=== PATIENT | male | born 1960 | race American Indian/Alaskan Native ===

== ENCOUNTER 2016-07-02 16:29 | Inpatient (IN) | payer MEDICARE ==
[2016-07-02] MEDS ORDERED: Ketorolac INJ* 30 MG/ML 1 ML VIAL IV ONE (17:40)
[2016-07-02] MEDS ORDERED: Ondansetron INJ* 2 MG/ML VIAL IV ONE ×2 (17:40→18:36)
[2016-07-02 17:50] LABS: Hematocrit 44 % (42-52); Hemoglobin 14.8 g/dl (14.0-18.0); Mean Corpuscular HGB Conc 34 g/dl (31-36); Mean Corpuscular Hemoglobin 30 pg (27-31); Mean Corpuscular Volume 89 fL (80-94); Mean Platelet Volume 9 um3 (7.4-10.4); Red Blood Count 4.98 10^6/ul (4.0-5.4); Red Cell Distribution Width 16 % (10.5-15); White Blood Count 23.1 10^3/ul (3.5-10.8)
[2016-07-02 17:53] LABS: Add Diff/Slide Review? Slide Review Added; Comments Flag Yes
[2016-07-02 18:01] LABS: Albumin 4.1 g/dL (3.2-5.2); BUN/Creatinine Ratio 20.2 (8-20); C Reactive Protein 6.49 mg/L (< 5.00); Calcium 9.2 mg/dL (8.6-10.3); EGFR African American 86.4 (>60); EGFR Non-African American 67.2 (>60); Globulin 3.3 g/dL (2-4); Potassium 3.4 mmol/L (3.5-5.0); Total Bilirubin 1.6 mg/dL (0.2-1.0); Total Protein 7.4 g/dL (6.4-8.9)
[2016-07-02] MEDS ORDERED: HYDROmorphone* 1 MG/ML 1 ML SYR IV ONE (18:36)
[2016-07-02] MEDS ORDERED: ceFAZolin 1 GM in Dextrose (*) 1 GM/50 ML BAG IVPB ONE (18:36)
[2016-07-02] MEDS ORDERED: HYDROmorphone* 1 MG/ML 1 ML SYR IV SLOW PU PRN (19:19)
[2016-07-02] MEDS ORDERED: NS 0.9% 1000 ML* 2,000 ML IV ONE (19:20)
[2016-07-02] MEDS ORDERED: ceFAZolin 1 GM in Dextrose (*) 1 GM/50 ML BAG IVPB SCH (20:00)
[2016-07-02 20:05] LABS: Urine Bacteria Absent (Absent); Urine Bilirubin Negative (Negative); Urine Glucose Negative (Negative); Urine Nitrite Negative (Negative)
[2016-07-02] MEDS ORDERED: Iohexol 300* (CONTRAST) 10 ML SDV IV ONE (20:15)
--- NOTE | 2016-07-02 20:50 | RAD ---
HISTORY: Cough, leukocytosis COMPARISONS: January 11, 2016 VIEWS:1: Single frontal portable view of the chest at 8:20 PM FINDINGS: LINES AND TUBES: None. CARDIOMEDIASTINAL SILHOUETTE: The cardiomediastinal silhouette is normal for portable technique. PLEURA: The costophrenic angles are sharp. No pleural abnormalities are noted. LUNG PARENCHYMA: The lungs are clear. ABDOMEN: The upper abdomen is clear. There is no subphrenic gas. BONES AND SOFT TISSUES: No bone or soft tissue abnormalities are noted. IMPRESSION: NO ACTIVE CARDIOPULMONARY DISEASE.
[2016-07-02] MEDS: Ondansetron INJ* 2 MG/ML VIAL IV PRN (20:59)
[2016-07-02] MEDS: NS 0.9% 1000 ML* 1,000 ML IV SCH (21:02)
--- NOTE | 2016-07-02 21:34 | ED ---
Faizan Moffett Erika, scribed for Jose Jara MD on 07/02/16 at 1806 . Complex/Multi-Sys Presentation - HPI Summary HPI Summary: Patient is a 55-year-old male presenting to the ED with a CC of abdominal pain. Patient reports he has had lower abdominal pain and mid to lower back pain for the past 2 weeks, worsening over the past 3-4 days. He states pain is constant, but he will intermittently have a spasm of pain. Associated symptoms include chills, nausea, and vomiting. Patient was given 4 mg zofran by EMS. He also complains of painful sores to his bilateral legs, with an additional area of redness and pain on the right leg. Hx SBO. - History Of Current Complaint Chief Complaint: EDGeneral Time Seen by Provider: 07/02/16 17:16 Hx Obtained From: Patient Onset/Duration: Gradual Onset, Lasting Weeks, Worse Since - 3-4 days Timing: Constant Severity Currently: Moderate Location: Pain At: - abdomen, back, legs Alleviating Factor(s): Nothing Associated Signs And Symptoms: Positive: Nausea, Vomiting, Abdominal Pain, Back Pain - Allergies/Home Medications Allergies/Adverse Reactions: Allergies Allergy/AdvReac Type Severity Reaction Status Date / Time Metoclopramide [From Reglan] Allergy Intermediate Pain Verified 07/02/16 16:39 Morphine Allergy muscle Verified 07/02/16 16:39 tightening PMH/Surg Hx/FS Hx/Imm Hx Endocrine/Hematology History: Reports: Hx Thyroid Disease - hypothyroid, Hx Anemia Cardiovascular History: Reports: Hx Hypotension, Other Cardiovascular Problems/ Disorders - PT STATES HE HAS HAD A HEART MURMUR FOR A LONG TIME Respiratory History: Reports: Hx Pneumonia GI History: Reports: Hx Crohn's Disease, Hx Diverticulosis, Hx Gall Bladder Disease, Hx Hiatal Hernia, Hx Obstructive Bowel, Hx Ileostomy - with reversal, Other GI Disorders - acute pancreatitis ('07). SBO. adhesions. Multiple abd surgeries. Musculoskeletal History: Reports: Hx Arthritis - RIGHT KNEE, Hx Orthopedic Injury, Other Musculoskeletal History - Tenosynovitis, joint pain Sensory History: Reports: Hx Contacts or Glasses Opthamlomology History: Reports: Hx Contacts or Glasses Neurological History: Reports: Hx Headaches, Hx Migraine - LAST ONE OVER A YEAR AGO, Other Neuro Impairments/Disorders - EXTREME PTSD- SINCE 2006 Psychiatric History: Reports: Hx Anxiety - NOT TREATED, Hx Depression - NOT TREATED, Hx Post Traumatic Stress Disorder, Other Psychiatric Issues/Disorders - has had panic attacks Denies: Hx Panic Disorder, Hx Substance Abuse - Cancer History Hx Chemotherapy: No Hx Radiation Therapy: No Hx Palliative Cancer Treatment: No - Surgical History Surgery Procedure, Year, and Place: Colostomy reversal & ileostomy 08/14/13. Ileostomy reversal 10/16/13. Small Bowel resection & APPENDECTOMY -2006,. broken femur and patella- RIGHT-1979. 04/2013- BOWEL RESECTION- COLOSTOMY-[facility]. 08/14 ATTEMPTED COLOSTOMY REVERSAL- ILEOSTOMY. TONSILLECTOMY-1976 Hx Anesthesia Reactions: No - Immunization History Date of Tetanus Vaccine: 2007 Date of Influenza Vaccine: 2009 Infectious Disease History: No Infectious Disease History: Reports: Hx Clostridium Difficile - 3 times, Hx of Known/Suspected MRSA - 2006 in [place], nasal swab Denies: Hx Hepatitis, Hx Human Immunodeficiency Virus (HIV), Hx Shingles, Hx Tuberculosis, Hx Known/Suspected VRE, Hx Known/Suspected VRSA, History Other Infectious Disease, Traveled Outside the in Last 30 Days - Family History Known Family History: Positive: Diabetes - Social History Occupation: Disabled Lives: With Family Alcohol Use: None Hx Substance Use: No Substance Use Type: Reports: None Hx Tobacco Use: No Smoking Status (MU): Never Smoked Tobacco Review of Systems Positive: Chills Positive: Abdominal Pain, Vomiting, Nausea Positive: Myalgia Skin: Other - painful sores to bilateral legs, erythema to right leg All Other Systems Reviewed And Are Negative: Yes Physical Exam Triage Information Reviewed: Yes Vital Signs On Initial Exam: Initial Vitals Temp Pulse Resp BP Pulse Ox 98 F 113 18 122/79 98 07/02/16 16:34 07/02/16 16:34 07/02/16 16:34 07/02/16 16:34 07/02/16 16:34 Vital Signs Reviewed: Yes Appearance: Positive: Well-Appearing, No Pain Distress, Obese Skin: Positive: Warm, Skin Color Reflects Adequate Perfusion, Diaphoretic - Slightly, Other - Excoriated erythematous areas sparsely on the bilateral lower extremities. Tender and erythematous area about 15x10 cm to the right medial lower leg Head/Face: Positive: Normal Head/Face Inspection Eyes: Positive: Normal ENT: Positive: Other - Mucus membranes slightly dry Neck: Positive: Supple, Nontender Respiratory/Lung Sounds: Positive: Clear to Auscultation, Breath Sounds Present Cardiovascular: Positive: Tachycardia Abdomen Description: Positive: Soft, Other: - Abdomen diffusely tender to palpation Bowel Sounds: Positive: Hypoactive Musculoskeletal: Positive: Normal Neurological: Positive: Normal Psychiatric: Positive: Affect/Mood Appropriate - Slime Coma Scale Coma Scale Total: 15 Diagnostics - Vital Signs Vital Signs Temp Pulse Resp BP Pulse Ox 07/02/16 16:59 102 F 07/02/16 16:52 107 23 97 07/02/16 16:35 98 F 113 18 122/79 98 07/02/16 16:34 98 F 113 18 122/79 98 - Laboratory Lab Results: Lab Results 07/02/16 07/02/16 07/02/16 Range/Units 17:30 17:30 17:30 WBC 23.1 H (3.5-10.8) 10^3/ul RBC 4.98 (4.0-5.4) 10^6/ul Hgb 14.8 (14.0-18.0) g/dl Hct 44 (42-52) % MCV 89 (80-94) fL MCH 30 (27-31) pg MCHC 34 (31-36) g/dl RDW 16 H (10.5-15) % Plt Count 181 (150-450) 10^3/ul MPV 9 (7.4-10.4) um3 Neut % (Auto) 95.6 H (38-83) % Lymph % (Auto) 0.6 L (25-47) % [place] % (Auto) 3.1 (1-9) % Eos % (Auto) 0 (0-6) % Baso % (Auto) 0.7 (0-2) % Absolute Neuts (auto) 22.1 H (1.5-7.7) 10^3/ul Absolute Lymphs (auto) 0.1 L (1.0-4.8) 10^3/ul Absolute Monos (auto) 0.7 (0-0.8) 10^3/ul Absolute Eos (auto) 0 (0-0.6) 10^3/ul Absolute Basos (auto) 0.2 (0-0.2) 10^3/ul Absolute Nucleated RBC 0.01 10^3/ul Nucleated RBC % 0 Sodium 134 (133-145) mmol/L Potassium 3.4 L (3.5-5.0) mmol/L Chloride 102 (101-111) mmol/L Carbon Dioxide 24 (22-32) mmol/L Anion Gap 8 (2-11) mmol/L BUN 23 (6-24) mg/dL Creatinine 1.14 (0.67-1.17) mg/dL Est GFR ( Amer) 86.4 (>60) Est GFR (Non-Af Amer) 67.2 (>60) BUN/Creatinine Ratio 20.2 H (8-20) Glucose 96 (70-100) mg/dL Lactic Acid 0.3 L (0.5-2.0) mmol/L Calcium 9.2 (8.6-10.3) mg/dL Total Bilirubin 1.60 H (0.2-1.0) mg/dL AST 34 (13-39) U/L ALT 36 (7-52) U/L Alkaline Phosphatase 73 (34-104) U/L C-Reactive Protein 6.49 H (< 5.00) mg/L Total Protein 7.4 (6.4-8.9) g/dL Albumin 4.1 (3.2-5.2) g/dL Globulin 3.3 (2-4) g/dL Albumin/Globulin Ratio 1.2 (1-3) Lipase 26 (11.0-82.0) U/L Result Diagrams: 07/02/16 17:30 07/02/16 17:30 Lab Statement: Any lab studies that have been ordered have been reviewed, and results considered in the medical decision making process. - EKG 17:15 Cardiac Rate: Tachycardia - at 108 bpm EKG Rhythm: Sinus Tachycardia Complex Multi-Symp Course/Dx Course Of Treatment: Mr. Mcgee was found to have a cellulitis and meet sepsis criteria. He was given antibiotics and fluid and the hospitalists were consulted. - Diagnoses Provider Diagnoses: Cellulitis, Sepsis - Physician Notifications Discussed Care Of Patient With: Dr. Cervantes (hospitalist) at 18:41 - agrees to admit Discharge - Discharge Plan Condition: Stable Disposition: ADMITTED TO [facility] The documentation as recorded by the Faizan nix Erika accurately reflects the service I personally performed and the decisions made by , Jose Jara MD.
--- NOTE | 2016-07-02 22:01 | RAD ---
CLINICAL HISTORY: Right lower quadrant abdominal pain COMPARISON: January 11, 2016 TECHNIQUE: Multiple contiguous axial CT scans were obtained of the abdomen and pelvis after the administration of intravenous contrast. Coronal and sagittal multiplanar reformations are submitted for review. Oral contrast was administered. Delayed images were obtained through the abdomen and pelvis. FINDINGS: LUNG BASES: The lung bases are clear. LIVER: The liver is diffusely low in attenuation compared to the spleen. There are no focal hepatic parenchymal masses. BILE DUCTS: There is no intrahepatic or extrahepatic biliary dilatation. GALLBLADDER: Multiple gallstones are noted. There is no pericholecystic inflammatory change. PANCREAS: The pancreas is normal, without mass or ductal dilatation. SPLEEN: Normal in size and appearance. UPPER GI TRACT: Evaluation of the gastrointestinal tract is limited by incomplete gastric distention. The upper GI tract is unremarkable. SMALL BOWEL AND MESENTERY: The small bowel is normal in contour, course, and caliber. There is no obstruction or dilatation. There are nondilated loops of small bowel within a right inguinal hernia. COLON: The colon is normal in contour, course, caliber. There is no pericolonic inflammatory change. There is postsurgical change to the cecum and sigmoid colon. The appendix is not visualized. ADRENALS: Normal bilaterally. KIDNEYS: The kidneys are normal in shape, size, contour, and axis. There is no hydronephrosis or nephrolithiasis. BLADDER: The bladder is smooth in contour. PELVIC ORGANS: The prostate gland is normal. The seminal vesicles are symmetric. AORTA: The aorta is normal. IVC: Unremarkable LYMPH NODES: There are enhancing right inguinal lymph nodes measuring up to 1.1 cm in short axis. ABDOMINAL WALL: There is a right inguinal hernia containing nondilated loops of small bowel BONES AND SOFT TISSUES: Degenerative changes are noted along the spine OTHER: None IMPRESSION: 1. THERE IS A RIGHT INGUINAL HERNIA CONTAINING NONDILATED LOOPS OF SMALL BOWEL. 2. CHOLELITHIASIS. 3. POSTSURGICAL CHANGE TO THE COLON. 4. FATTY LIVER. 5. RIGHT INGUINAL LYMPHADENOPATHY.
--- NOTE | 2016-07-02 22:38 | HP ---
HOSPITAL MEDICINE HISTORY AND PHYSICAL: DATE OF ADMISSION: 07/02/16 PRIMARY CARE PROVIDER: Andry Gunn NP. ATTENDING PHYSICIAN: Dr. Bill Hernandez* (dictation provided by Oma Bauman NP). CHIEF COMPLAINT: Syncope x3 with right lower quadrant abdominal pain and right lower extremity redness, pain, and swelling. HISTORY OF PRESENT ILLNESS: Mr. Mcgee is a 55-year-old male with a past medical history of questionable ulcerative colitis versus Crohn's disease, question of adrenal insufficiency, hypothyroidism and diverticulitis with Marky's and reversal of ileostomy and colostomy who presents today to the hospital with multiple complaints. Mr. Mcgee states he began feeling ill about 6 weeks ago, at which time he was diagnosed with bronchitis by his nurse practitioner, Andry Gunn. After that, he had about 3 weeks of diarrhea which he states is not unusual for him given his suspected diagnosis of possible ulcerative colitis versus IBS versus Crohn's. His diarrhea resolved about 4 days and then he developed pain in his right lower quadrant which was associated with no further bowel movements. His last bowel movement was 3 days ago. Last night, he had an episode of syncope. He states he collapsed on the floor. He is not sure how long he was unresponsive. Today, he had 2 further episodes with the last episode being around 4 p.m. He called his daughter and told her of the syncopal episodes and abdominal pain and she instructed him that he should come to the emergency room for evaluation. He denies fevers or chills. He has had an ongoing cough since his diagnosis of bronchitis 6 weeks ago. He reports pain with deep inspiration in the center of his chest related to his bronchitis and cough. He denies shortness of breath. He has had nausea and vomiting, but this is not unusual for him as he states he has this on a daily basis. He also The patient notes redness, pain, and swelling to his right lower extremity for the past two days. In the emergency room, Mr. Mcgee had a white blood cell count elevated at 23.1. His lactic acid is normal at 0.3. His CRP is normal at 6.49. His urine shows no evidence of infection. Chest x-ray is pending. He was found to have redness and swelling to his right lower extremity. PAST MEDICAL HISTORY: 1. Adrenal insufficiency, though medications stopped in March by Dr. Law. 2. Question of ulcerative colitis, though no definitive diagnosis has been established. 3. Hypothyroidism. 4. Decreased testosterone. 5. History of diverticulitis with Marky's procedure with reversal of ileostomy and colostomy. 6. History of severe cellulitis, 2013. MEDICATIONS: Levothyroxine 137 mcg p.o. daily. ALLERGIES: To METOCLOPRAMIDE and MORPHINE. FAMILY HISTORY: The patient does not know his mother well, but he states his dad had diabetes and multiple strokes. SOCIAL HISTORY: No report of alcohol, tobacco, or drug use. The patient lives alone. He states his daughter, Angela, who lives in [place] would be his healthcare proxy. REVIEW OF SYSTEMS: A 14-point review of systems was completed with Mr. Mcgee and all those not mentioned above are negative. PHYSICAL EXAMINATION GENERAL: Mr. Mcgee is sitting up in the bed. He is in no acute distress. He is calm and cooperative to my examination. VITAL SIGNS: Blood pressure 122/79, heart rate 107, respiratory rate 18, temperature 102, O2 saturation 97% on room air. LUNGS: Clear to auscultation bilaterally with no accessory muscle use and good aeration. HEART: S1, S2. No murmur, rub, or gallop and regular. ABDOMEN: Soft. There is tenderness at the pinpoint region in the right lower quadrant. EXTREMITIES: No cyanosis. There is some mild edema on the right lower extremity. There is redness and warmth at the level of the ankle on the right lower extremity. This does not reach above the level of the mid calf and does not go past the ankle and does not involve the foot. There is no drainage. NEUROLOGIC: He is alert and oriented x3. He moves all extremities equally. There is no facial asymmetry or focal weakness. Extraocular movements are intact. SKIN: The patient has multiple small scabbed lesions on his lower extremities. There is no erythema or drainage associated with these. LABORATORY DATA AND DIAGNOSTIC STUDIES: Urine shows no evidence of infection. WBC 23.1, hemoglobin 14.8, hematocrit 44, platelet count 181. Sodium 134, potassium 3.4, chloride 102, serum bicarbonate 24, BUN 23, creatinine 1.14, glucose 96. Lactic acid 0.3. CRP 6.49. Chest x-ray is pending. ASSESSMENT: Mr. Mcgee is a 55-year-old male with a past medical history of question of adrenal insufficiency, question of ulcerative colitis, hypothyroidism, and diverticulitis, status post Marky's with reversal and severe episode of cellulitis to his right lower extremity in 2013 who presents today to the hospital with multiple complaints including syncope x3, nausea, and vomiting, no bowel movements x3 days with pain in the right lower quadrant and redness and swelling to his right lower extremity. Our plans are for inpatient admission as I expect his length of stay to be greater than 3 days: 1. Concern for sepsis with fever, leukocytosis with tachycardia: I do not have a clear source of infection, but likely it is related to his cellulitis to the right lower extremity. He does also complain of right lower quadrant pain and we will be getting a CT abdomen and pelvis to evaluate. His chest x-ray is pending. He has recent bronchitis, so perhaps a pneumonia is evolving. His urinalysis is negative. Blood cultures have been drawn. For tachycardia, we will continue with intravenous fluids. 2. Cellulitis: Plan to treat with cefazolin and lower extremity elevation. 3. Syncope: The patient will be monitored on telemetry unit for any evidence of arrhythmia. 4. Right lower quadrant abdominal pain: The patient will have a CT abdomen and pelvis to rule out any obstruction or other abnormality. 5. Adrenal insufficiency: Plan to check cortisol level in the a.m. to see if this is ongoing issue. Blood pressure is adequate at this point. 6. Hypothyroidism: Continue levothyroxine. 7. DVT prophylaxis with heparin subcu. 8. Disposition to the telemetry floor. TIME SPENT: Approximately 60 minutes were spent on the admission of this patient, more than half time spent with the patient at the bedside reviewing the events leading up to this hospitalization, performing the physical examination, and reviewing the plan of care. OMA BAUMAN, CONNER [id number]/[facility] #: [id number] SOUMYA
[2016-07-02] MEDS: Heparin VIAL(*) 5000 UNITS/ML VIAL (FIVE THOUSAND) SUBCUT SCH (23:53)
[2016-07-03] MEDS: Ondansetron INJ* 2 MG/ML VIAL IV PRN ×4 (01:33→19:38)
[2016-07-03] MEDS: HYDROmorphone* 1 MG/ML 1 ML SYR IV SLOW PU PRN ×5 (01:44→23:59)
[2016-07-03] MEDS ORDERED: ceFAZolin 1 GM in Dextrose (*) 1 GM/50 ML BAG IVPB SCH (02:30)
[2016-07-03 05:21] LABS: Hematocrit 39 % (42-52); Hemoglobin 12.9 g/dl (14.0-18.0); Mean Corpuscular HGB Conc 33 g/dl (31-36); Mean Corpuscular Hemoglobin 30 pg (27-31); Mean Corpuscular Volume 91 fL (80-94); Mean Platelet Volume 9 um3 (7.4-10.4); Red Blood Count 4.31 10^6/ul (4.0-5.4); Red Cell Distribution Width 16 % (10.5-15); White Blood Count 32.9 10^3/ul (3.5-10.8)
[2016-07-03 05:22] LABS: Add Diff/Slide Review? Slide Review Added; Comments Flag Yes
[2016-07-03 05:37] LABS: BUN/Creatinine Ratio 17.7 (8-20); Calcium 8.3 mg/dL (8.6-10.3); EGFR African American 74.3 (>60); EGFR Non-African American 57.7 (>60); Potassium 3.6 mmol/L (3.5-5.0)
[2016-07-03 05:53] LABS: Immature Granulocytes 5 % (0-9); Neutrophil % 92 % (38-83); RBC Morphology Normal (Normal); Toxic Granulation 1+
[2016-07-03] MEDS: Heparin VIAL(*) 5000 UNITS/ML VIAL (FIVE THOUSAND) SUBCUT SCH ×3 (06:09→22:34)
[2016-07-03] MEDS: Levothyroxine TAB* 137 MCG TAB PO SCH (07:41)
[2016-07-03] MEDS ORDERED: Acetaminophen TAB* 325 MG PO PRN (09:31)
[2016-07-03] MEDS: NS 0.9% 1000 ML* 1,000 ML IV SCH (09:49)
--- NOTE | 2016-07-03 09:57 | PN ---
Subjective Date of Service: 07/03/16 Interval History: This is a 55 yo male with reported history of ulcerative colitis and hypothyroidism who presented to the ER yesterday with multiple complaints including cough, abdominal pain, n/v, and RLE erythema and swelling. Patient had a cellulitis noted of the RLE and started on cefazolin. CXR shows no infiltrate. His CT demonstrated a large R inguinal hernia containing loops of small bowel but no evidence of obstruction. He had a significant leukocytosis at admission and has been febrile intermittently. Lactic acid was normal however at 0.3. Patient reports his leg seems improved. The erythema and pain have improved. He is still having intermittent, cramping abdominal pain. No further vomiting, but still nauseated. He reported his pain was made worse with taking a couple of bites of bagel this morning. No bowel movement. He also continues to have a cough and a burning sensation in his substernal region with deep inspiration. No SOB. Objective Active Medications: Acetaminophen (Tylenol Tab*) 650 mg PO Q6H PRN PRN Reason: FEVER/PAIN Heparin Sodium (Porcine) (Heparin Vial(*)) 5,000 units SUBCUT Q8HR [facility] Last Admin: 07/03/16 06:09 Dose: 5,000 units Hydromorphone HCl (Dilaudid Iv*) 0.5 mg IV SLOW PU Q4H PRN PRN Reason: PAIN Last Admin: 07/03/16 05:58 Dose: 0.5 mg Sodium Chloride (Ns 0.9% 1000 Ml*) 1,000 mls @ 125 mls/hr IV PER RATE [facility] Last Admin: 07/02/16 21:02 Dose: 125 mls/hr Piperacillin Sod/Tazobactam Sod (Zosyn 3.375 Gm In Ns Premix*) 3.375 gm in 100 mls @ 25 mls/hr IVPB Q8H [facility] Levothyroxine Sodium (Synthroid Tab*) 137 mcg PO 0800 [facility] Last Admin: 07/03/16 07:41 Dose: 137 mcg Ondansetron HCl (Zofran Inj*) 4 mg IV Q4H PRN PRN Reason: NAUSEA Last Admin: 07/03/16 06:04 Dose: 4 mg Vital Signs: Temp Pulse Resp BP Pulse Ox 100.1 F 94 16 119/103 94 07/03/16 07:35 07/03/16 07:35 07/03/16 07:35 07/03/16 07:35 07/03/16 07:35 Oxygen Devices in Use Now: None Appearance: Mildly uncomfortable appearing middle aged gentleman Neck: NL Appearance and Movements; NL JVP Respiratory: Symmetrical Chest Expansion and Respiratory Effort, Clear to Auscultation, - - occasional dry cough Cardiovascular: RRR Abdominal: - - soft, bowel sounds present, TTP in RLQ Skin: - - mild erythema of RLE with a few crusted pustules Neurological: Alert and Oriented x 3 Result Diagrams: 07/03/16 04:59 07/03/16 04:59 Additional Lab and Data: . Diagnostic Imaging: CXR - NAD CT abd/pelvis - R inguinal hernia containing loops of small bowel but no dilation with R inguinal LAD and cholelithiasis Assess/Plan/Problems-Billing Assessment: This is a 55 yo gentleman with a reported h/o ulcerative colitis and hypothyroidism who presented with complaints of cough, abdominal pain, n/v and cellulitis with evidence of sepsis. - Patient Problems (1) Sepsis Comment: Meets SIRS criteria with fever, leukocytosis and tachycardia as well as SOFA score of 2 Likely source is cellulitis, but wonder if we need to be concerned about an incarcerated hernia Will broaden antibiotic coverage to Zosyn to cover intrabdominal pathology (2) Cellulitis Comment: RLE Erythema improving Likely secondary to an infected hair follicle as there are multiple dried pustules (3) Inguinal hernia Comment: Large R inguinal hernia noted on CT containing loops of small bowel No evidence of obstruction on imaging and abdomen is soft with bowel sounds present Initial lactic acid was WNL making incarceration less likely and his pain seems to be improving slightly Requested surgical consultation to evaluate (4) Acute kidney injury Comment: Secondary to sepsis Cr magalys slightly today Cont IVF and monitor (5) Cough Comment: No infiltrate on CXR No hypoxia, no h/o asthma or COPD Likely postviral in etiology based on history (6) Ulcerative colitis Comment: No colonoscopy available for review No current medications Patient reports no improvement with use of Asacol in the past Not actively followed by gastroenterology (7) Hypothyroidism Comment: Last TSH 2.5 from Mar Cont levothyroxine (8) H/O adrenal insufficiency Comment: Previously treated by Dr Pulido Medications discontinued in Mar No hypotension Am cortisol measured and slightly above normal range No intervention necessary, stress steroids not indicated (9) Full code status (10) DVT prophylaxis Comment: SQ Heparin Status and Disposition: Patient requires continued hospital care. Inpatient.
[2016-07-03] MEDS ORDERED: Piperac/Tazob 3.375 gm in NS* 3.375 GM/100 ML BAG IVPB ONE (10:00)
[2016-07-03] MEDS: Piperac/Tazob 3.375 gm in NS* 3.375 GM/100 ML BAG IVPB SCH ×2 (14:21→22:31)
--- NOTE | 2016-07-03 20:49 | CONS ---
CC: Lennox Grijalva MD; Abdirizak Singh MD DATE OF CONSULT: 07/03/16 CHIEF COMPLAINT: Abdominal pain and leg pain and nausea. HISTORY OF PRESENT ILLNESS: He was admitted to the hospital here on the hospitalist service with fe rosa, white count, cellulitis of the right lower extremity as well as some abdominal pain and nausea. He has been found to have a right inguinal hernia and I am consulted to evaluate the hernia and as sess for the abdominal pain as a source for his fever and white blood count. By history, he had a Marky's procedure for diverticular resection in April 2013 and a subseque nt colostomy reversal and protective ileostomy and subsequently a closure of the ileostomy. About a year later, he had repair of a ventral hernia by Dr. Tamayo and that was about 2 years ago. Since , he has also been working well. He has relatively recently noticed bulging or discomfort in the right groin. He has had mild queasiness and nausea. Vomiting really has not been a prominent facto r. The patient is somewhat diffuse, but more on the right side than on the left. PHYSICAL EXAM: On examination today, he has a well-healed midline incision, well- healed colostomy site incisions. No evidence of hernia at those sites. He has a palpable right inguinal hernia. Wh en he is upright, this bulges out and when he is supine I can get it to go back in. It is mildly te nder, not impressively so and again is noted to be reducible. The testes are normally descended and without palpable mass. The left side is without obvious hernia. DIAGNOSTIC STUDIES/LAB DATA: Review of the CT scan shows a right inguinal hernia with no evidence o f distension of the small bowel and no evidence of obstruction. He has good flow of contrast. There is a fair amount of stool and air in the colon. IMPRESSION: A 55-year-old obese male with multiple abdominal surgeries, now with newly identified r ight inguinal hernia with small bowel contents. However, he has no evidence of obstruction or incar ceration of the hernia. It is soft and reducible and therefore, he does not need urgent hernia surg addis. He has mild tenderness in the right upper abdomen, not very impressive. No guarding or reboun d or Rizzo's sign. So, in short, he should have an elective repair of his right inguinal hernia on ce the current series of events have resolved. I do not think there is an intraabdominal process th at would explain his fever or white count and I think the cellulitis is more than likely the source, so we will continue to follow him peripherally and allow the medical service to treat his celluliti s and will be happy to see back should the need arise and certainly I encouraged him to give us a ca ll to follow up electively for the hernia repair once he is resolved from this issue. [id number]/[facility] #: [id number]
[2016-07-04] MEDS: NS 0.9% 1000 ML* 1,000 ML IV SCH (04:19)
[2016-07-04] MEDS: Ondansetron INJ* 2 MG/ML VIAL IV PRN ×2 (04:35→15:09)
[2016-07-04] MEDS: HYDROmorphone* 1 MG/ML 1 ML SYR IV SLOW PU PRN ×4 (04:39→20:21)
[2016-07-04] MEDS: Heparin VIAL(*) 5000 UNITS/ML VIAL (FIVE THOUSAND) SUBCUT SCH ×3 (05:38→22:48)
[2016-07-04] MEDS: Piperac/Tazob 3.375 gm in NS* 3.375 GM/100 ML BAG IVPB SCH ×3 (05:40→22:49)
[2016-07-04] MEDS: Levothyroxine TAB* 137 MCG TAB PO SCH (07:55)
[2016-07-04 08:29] LABS: Add Diff/Slide Review? Slide Review Added; Comments Flag Yes; Hematocrit 39 % (42-52); Hemoglobin 12.9 g/dl (14.0-18.0); Mean Corpuscular HGB Conc 33 g/dl (31-36); Mean Corpuscular Hemoglobin 30 pg (27-31); Mean Corpuscular Volume 90 fL (80-94); Mean Platelet Volume 9 um3 (7.4-10.4); Red Blood Count 4.33 10^6/ul (4.0-5.4); Red Cell Distribution Width 16 % (10.5-15); White Blood Count 15.4 10^3/ul (3.5-10.8)
[2016-07-04] MEDS ORDERED: methylPREDNISolone SOD SUCC* 125 MG 2 ML VIAL IV ONE (08:41)
[2016-07-04] MEDS ORDERED: NS 0.9% 1000 ML* 1,000 ML IV SCH (08:42)
[2016-07-04 08:44] LABS: BUN/Creatinine Ratio 12.6 (8-20); Calcium 8.2 mg/dL (8.6-10.3); EGFR African American 89.1 (>60); EGFR Non-African American 69.3 (>60); Potassium 3.4 mmol/L (3.5-5.0)
--- NOTE | 2016-07-04 08:50 | PN ---
Subjective Date of Service: 07/04/16 Interval History: Patient reports some improvement in abdominal pain and nausea. Diarrhea started again this am, no blood noted. No vomiting. He still has quite a bit of pain in his leg and reports he was unable to walk on it this am. He also notes new ulcerations over his tongue which are somewhat uncomfortable Objective Active Medications: Acetaminophen (Tylenol Tab*) 650 mg PO Q6H PRN PRN Reason: FEVER/PAIN Heparin Sodium (Porcine) (Heparin Vial(*)) 5,000 units SUBCUT Q8HR [facility] Last Admin: 07/04/16 05:38 Dose: 5,000 units Hydromorphone HCl (Dilaudid Iv*) 1 mg IV SLOW PU Q4H PRN PRN Reason: PAIN Last Admin: 07/04/16 04:39 Dose: 1 mg Sodium Chloride (Ns 0.9% 1000 Ml*) 1,000 mls @ 125 mls/hr IV PER RATE [facility] Last Admin: 07/04/16 04:19 Dose: 125 mls/hr Piperacillin Sod/Tazobactam Sod (Zosyn 3.375 Gm In Ns Premix*) 3.375 gm in 100 mls @ 25 mls/hr IVPB Q8H [facility] Last Admin: 07/04/16 05:40 Dose: 25 mls/hr Levothyroxine Sodium (Synthroid Tab*) 137 mcg PO 0800 [facility] Last Admin: 07/04/16 07:55 Dose: 137 mcg Methylprednisolone Sodium Succinate (Solu-Medrol*) 125 mg IV ONCE ONE Stop: 07/04/16 08:42 Ondansetron HCl (Zofran Inj*) 4 mg IV Q4H PRN PRN Reason: NAUSEA Last Admin: 07/04/16 04:35 Dose: 4 mg Prednisone (Deltasone Tab*) 60 mg PO DAILY [facility] Vital Signs: Temp Pulse Resp BP Pulse Ox 98.8 F 78 18 111/69 95 07/04/16 07:36 07/04/16 07:36 07/04/16 08:00 07/04/16 07:36 07/04/16 07:36 Oxygen Devices in Use Now: None Appearance: Mildly ill but overall well appearing in NAD Neck: NL Appearance and Movements; NL JVP Respiratory: Symmetrical Chest Expansion and Respiratory Effort, Clear to Auscultation Cardiovascular: NL Sounds; No Murmurs; No JVD, RRR Abdominal: - - abdomen soft with BS present, TTP in RLQ Skin: - - faint erythema and focal edema over distal RLE Neurological: Alert and Oriented x 3 Result Diagrams: 07/04/16 08:17 07/03/16 04:59 Additional Lab and Data: . Diagnostic Imaging: CXR - NAD CT abd/pelvis - R inguinal hernia containing loops of small bowel but no dilation with R inguinal LAD and cholelithiasis Assess/Plan/Problems-Billing Assessment: This is a 55 yo gentleman with a reported h/o ulcerative colitis and hypothyroidism who presented with complaints of cough, abdominal pain, n/v and cellulitis with evidence of sepsis. - Patient Problems (1) Sepsis Comment: Met SIRS criteria with fever, leukocytosis and tachycardia as well as SOFA score of 2 Likely source is cellulitis Cont Zosyn (2) Cellulitis Comment: RLE Erythema improving Likely secondary to an infected hair follicle as there are multiple dried pustules (3) Ulcerative colitis Comment: Need to consider that patient's current symptoms of abdominal pain, nausea and diarrhea are due to a flare of his colitis, also noted new ulcerations of his tongue, which would be more consistent with Crohn's Will request stool sample to eval for blood and lactoferrin, but also screen for Cdiff Empirically treat with corticosteroids and will ask GI to please evaluate Found old pathology report from colonoscopies in [address] Hoff which indicated sigmoid colitis at that time No current medications, patient states he has not been symptomatic in ~2 years Patient reports no improvement with use of Asacol or Remicaid in the past Not actively followed by gastroenterology, but previously seen by Dr Hoff (4) Inguinal hernia Comment: Large R inguinal hernia noted on CT containing loops of small bowel No evidence of obstruction on imaging and abdomen is soft with bowel sounds present Appreciate surgery involvement who reported the hernia was soft and easily reducible, no evidence of incarceration, elective repair recommended in the future (5) Acute kidney injury Comment: Secondary to sepsis Cont IVF and monitor (6) Cough Comment: No infiltrate on CXR No hypoxia, no h/o asthma or COPD Likely postviral in etiology based on history (7) Hypothyroidism Comment: Last TSH 2.5 from Mar Cont levothyroxine (8) H/O adrenal insufficiency Comment: Previously treated by Dr Law Medications discontinued in Mar No hypotension Am cortisol measured and slightly above normal range No intervention necessary, stress steroids not indicated (9) Full code status (10) DVT prophylaxis Comment: SQ Heparin Status and Disposition: Patient requires continued hospital care. Inpatient. Counseling and/or Coordination of Care Minutes: 45
[2016-07-04 09:34] LABS: Magnesium 1.9 mg/dL (1.9-2.7)
[2016-07-04] MEDS ORDERED: oxyCODONE TAB* 5 MG TAB PO PRN (16:23)
[2016-07-04] MEDS: Dicyclomine CAP* 10 MG PO SCH (20:20)
--- NOTE | 2016-07-04 21:22 | CONS ---
CONSULTATION REPORT: DATE OF CONSULT: 07/04/16 REQUESTING PHYSICIAN: RAJ Dan. INDICATION: Abdominal pain and diarrhea and alternating bowel habits. NARRATIVE: Mr. Mcgee is a very pleasant 55-year-old gentleman well known to myself. He was just admitted for cellulitis. The patient came to the emergency room for a suspected adrenal crisis and was found to have lower extremity cellulitis. We were consulted due to chronic GI issues. The patient has had alternating bowel habits for many years. I had seen him back in 2010 and 2011, at which time a large workup occurred. He has always had diverticulosis. He has had diverticulitis with resulting surgery in the past few years. He has never really had an official diagnosis of inflammatory bowel disease, potentially diverticular colitis and more likely irritable bowel syndrome. He states that his GI symptoms have remained very stable. He has alternating bowel habits; some days he has great days, other days he has bad days. He has chronic right-sided abdominal pain. There has been no blood in the stool. Really no change in his GI symptoms over the past few years. PAST MEDICAL HISTORY: Significant for adrenal insufficiency, hypothyroid, diverticulosis, and diverticulitis. PAST SURGICAL HISTORY: Include appendectomy, right hemicolectomy, ileostomy with reversal. ALLERGIES: He has allergies to REGLAN and MORPHINE. FAMILY HISTORY: Diabetes. REVIEW OF SYSTEMS: Twelve systems were reviewed, other than that mentioned in the HPI were unremarkable. PHYSICAL EXAM: Temperature is 98.8, blood pressure is 111/61, pulse is 78, respiratory rate of 20. General: Well-appearing male, in no apparent distress. Alert, oriented, pleasant, fluent. HEENT: Mucous membranes are moist without any lesions, ulcers, or exudate. Neck is supple. Trachea is midline. Head is normocephalic, atraumatic. Heart: Regular rate and rhythm. Lungs: Clear to auscultation. Abdomen: Positive bowel sounds. Obese, soft, right-sided tenderness. No rebound, no guarding. Numerous abdominal scars. Extremities: No lower extremity edema on the left. Positive edema on the right with slight redness. DIAGNOSTIC STUDIES/LAB DATA: Labs of note, white count went from 23 to 33 to 15.4, his hemoglobin is 12.9, platelets of 163,000. BUN is 14, creatinine is 1.11. Abdominal CT shows cholelithiasis, inguinal hernia and a normal appearing colon. ASSESSMENT AND PLAN: This is a pleasant 55-year-old gentleman with chronic and stable GI issues, likely he has irritable bowel syndrome. I am going to try him on Bentyl while he is here in the hospital. I have not seen him in the office in a couple of years. I would like to see him back for followup in the office. We will call him to make arrangements for this. CC: Dr. Singh [id number]/[facility] #: [id number] SOUMYA
[2016-07-05] MEDS: HYDROmorphone* 1 MG/ML 1 ML SYR IV SLOW PU PRN ×2 (00:33→06:05)
[2016-07-05 05:27] LABS: Hematocrit 39 % (42-52); Hemoglobin 12.9 g/dl (14.0-18.0); Mean Corpuscular HGB Conc 33 g/dl (31-36); Mean Corpuscular Hemoglobin 30 pg (27-31); Mean Corpuscular Volume 89 fL (80-94); Mean Platelet Volume 9 um3 (7.4-10.4); Red Blood Count 4.37 10^6/ul (4.0-5.4); Red Cell Distribution Width 16 % (10.5-15); White Blood Count 15.8 10^3/ul (3.5-10.8)
[2016-07-05 05:42] LABS: BUN/Creatinine Ratio 14.7 (8-20); Calcium 8.8 mg/dL (8.6-10.3); EGFR African American 98.3 (>60); EGFR Non-African American 76.4 (>60); Potassium 3.4 mmol/L (3.5-5.0)
[2016-07-05] MEDS: Heparin VIAL(*) 5000 UNITS/ML VIAL (FIVE THOUSAND) SUBCUT SCH (06:07)
[2016-07-05] MEDS: Piperac/Tazob 3.375 gm in NS* 3.375 GM/100 ML BAG IVPB SCH (06:25)
[2016-07-05] MEDS: Levothyroxine TAB* 137 MCG TAB PO SCH (08:53)
[2016-07-05] MEDS: Dicyclomine CAP* 10 MG PO SCH (08:53)
[2016-07-05] MEDS ORDERED: predniSONE TAB* 20 MG PO SCH (09:00)
[2016-07-05] MEDS ORDERED: Potassium Chlor TAB* 20 MEQ TAB.ER PO SCH (09:00)
[2016-07-05 09:23] VITALS: BP 127/78
--- NOTE | 2016-07-06 04:13 | DS ---
DISCHARGE SUMMARY: DATE OF ADMISSION: 07/02/16 DATE OF DISCHARGE: 07/05/16 PRIMARY CARE PROVIDER: Andry Gunn NP DISCHARGING PROVIDER: RAJ Ayala SUPERVISING PHYSICIAN: Dr. Mally Cifuentes* (dictated by RAJ Ayala). CONSULTING SURGEON: Dr. Grijalva. PRIMARY SURGEON: Dr. Tamayo. CONSULTING CLAIM AUDITOR: Dr. Hoff. PRIMARY DISCHARGE DIAGNOSES: 1. Sepsis secondary to right lower extremity cellulitis. 2. Abdominal pain - questionable flare of inflammatory bowel disease versus irritable bowel syndrome. 3. Acute kidney injury secondary to sepsis - resolved. 4. Cough - likely postviral. SECONDARY DISCHARGE DIAGNOSES: 1. Right inguinal hernia - symptomatic, but without incarceration. 2. Hypothyroidism. 3. History of adrenal insufficiency. DISCHARGE MEDICATIONS: 1. Keflex 500 mg p.o. t.i.d. x7 days. 2. Bentyl 10 mg p.o. b.i.d. 3. Levothyroxine 137 mcg p.o. daily. 4. Zofran 4 mg sublingual q.6 hours as needed for nausea. 5. Oxycodone 5 mg p.o. q.6 hours p.r.n. pain. MEDICATION CHANGES: 1. Start Keflex x7 days. 2. Start Bentyl. 3. Oxycodone p.r.n. #[address] of the abdomen and pelvis, 07/02/16, large right inguinal hernia containing nondilated loops of small bowel as well as cholelithiasis and postsurgical changes to the bowel as well as a fatty liver and right inguinal lymphadenopathy. 2. Chest x-ray, 07/02/16, shows no acute disease. HOSPITAL COURSE: This is a 55-year-old gentleman with hypothyroidism, past history of diverticulitis requiring partial colectomy with colostomy and subsequent reversal as well as a questionable history of inflammatory bowel disease versus irritable bowel and past history of adrenal insufficiency followed by Dr. Pulido who presented to the emergency department with complaints of syncope, right lower quadrant abdominal pain, right lower extremity erythema , pain, and swelling as well as a cough. The patient states that he was recently sick with bronchitis and has had continued cough for several weeks. He denied any associated shortness of breath. He states that he had had diarrhea for about a week prior to his hospital admission and then had no bowel movement for approximately 3 days. He was complaining of right lower quadrant abdominal pain at the time of evaluation. CT of the abdomen and pelvis demonstrated a large right inguinal hernia containing loops of small bowel, but no evidence of obstruction or incarceration. Initial vitals were unremarkable. Initial labs, however, demonstrated significant leukocytosis with a white blood cell count of 23,000 primarily neutrophils, but no bands and comprehensive metabolic panel demonstrated a mildly elevated at total bilirubin at 1.6 and a mildly elevated C-reactive protein at 6.49. The patient subsequently developed a fever while still in the emergency department with a temperature up to 102 degrees Fahrenheit. On initial evaluation, the patient's lung exam was clear and his chest x-ray showed no acute process. His right lower quadrant was tender and he had significant erythema appreciated in his right lower extremity. The patient was subsequently admitted and was initially started on cefazolin for cellulitis. The following day, his white blood cell count climbed further up to nearly 33,000 with 5% bands. Requested Surgery consultation to evaluate his inguinal hernia. He did have right lower quadrant tenderness to palpation, but the abdomen remained soft with bowel sounds present. Hernia was found to be soft and easily reducible by General Surgery and did not feel that that was a contributing factor to his presentation. Antibiotics were broadened to Zosyn to cover for intraabdominal pathology. His white blood cell count subsequently improved. Blood cultures remained negative. The patient was previously seen by Dr. Hoff for questionable inflammatory bowel versus irritable bowel syndrome. He had 2 prior colonoscopies in 2011. Pathology seems to suggest possibility of inflammatory bowel. I asked program control analyst, Dr. Hoff, to please evaluate. He stated that diagnosis of inflammatory bowel was never previously confirmed and suggested that inflammatory bowel disease may be more likely and recommended starting Bentyl. The patient did receive 1 dose of Solu-Medrol. He did have some diarrhea during his hospital stay, but unfortunately, stool sample was not collected. The patient's cellulitis on his right lower extremity improved as did his pain and swelling and his abdominal discomfort became manageable. DISPOSITION: The patient is being discharged to home with continued antibiotics for his right lower extremity cellulitis. The patient requires followup with Dr. Tamayo regarding his right inguinal hernia. This does need to be addressed on an outpatient basis. Also, recommend followup with Dr. Lemberg for his bowel complaints. He is not being discharged with any steroids. He is being discharged with Bentyl to be used on a twice daily basis. The patient also requires followup with his primary care provider regarding this hospitalization. RAJ AYALA CC: Andry Gunn NP; Dr. Tamayo; Dr. Hoff* [id number]/[facility] #: [id number] [facility]ng[facility]
== END 2016-07-05 10:21 | disposition home or self-care (01) | DRG 872 ==
LOC: ED 16:29 → MED 19:17 → MEDTELE 22:00
PROVIDERS: ADMIT Hospitalist; ATTEND Internal Medicine
DX: A41.9 Sepsis, unspecified organism (principal); N17.9 Acute kidney failure, unspecified; K51.90 Ulcerative colitis, unspecified, without complications; K76.0 Fatty (change of) liver, not elsewhere classified; E27.40 Unspecified adrenocortical insufficiency; L03.115 Cellulitis of right lower limb; K63.89 Other specified diseases of intestine; R05 Cough; K40.90 Unilateral inguinal hernia, without obstruction or gangrene, not specified as recurrent; E03.9 Hypothyroidism, unspecified; M17.11 Unilateral primary osteoarthritis, right knee; K80.20 Calculus of gallbladder without cholecystitis without obstruction; G43.909 Migraine, unspecified, not intractable, without status migrainosus; E66.9 Obesity, unspecified; R40.2412 Glasgow coma scale score 13-15, at arrival to emergency department; F32.9 Major depressive disorder, single episode, unspecified; F43.10 Post-traumatic stress disorder, unspecified; F41.0 Panic disorder [episodic paroxysmal anxiety]; R59.0 Localized enlarged lymph nodes; Z93.3 Colostomy status; Z88.1 Allergy status to other antibiotic agents; Z88.5 Allergy status to narcotic agent; Z83.3 Family history of diabetes mellitus; Z82.3 Family history of stroke; Z87.01 Personal history of pneumonia (recurrent); Z93.2 Ileostomy status; Z86.14 Personal history of Methicillin resistant Staphylococcus aureus infection; Z68.35 Body mass index [BMI] 35.0-35.9, adult
CPT/HCPCS: 36415; 71010; 74177; 80048; 80053; 81003; 81015; 82533; 83605; 83690; 83735; 85025; 86140; 87040; A9270-GY; J0690; J1170; J1644; J1885; J2405; J2543; J2930; J7512; Q9967

== ENCOUNTER 2016-10-19 14:53 | Emergency (ER) | payer MEDICARE ==
[2016-10-19] MEDS ORDERED: HYDROmorphone* 1 MG/ML 1 ML SYR IV SLOW PU ONE (17:57)
[2016-10-19] MEDS ORDERED: Ondansetron INJ* 2 MG/ML VIAL IV ONE (17:57)
[2016-10-19] MEDS ORDERED: NS 0.9% 1000 ML* 1,000 ML IV ONE (17:57)
[2016-10-19 18:38] LABS: Hematocrit 50 % (42-52); Hemoglobin 16.7 g/dl (14.0-18.0); Mean Corpuscular HGB Conc 33 g/dl (31-36); Mean Corpuscular Hemoglobin 31 pg (27-31); Mean Corpuscular Volume 93 fL (80-94); Mean Platelet Volume 10 um3 (7.4-10.4); Red Blood Count 5.41 10^6/ul (4.0-5.4); Red Cell Distribution Width 15 % (10.5-15); White Blood Count 7.5 10^3/ul (3.5-10.8)
[2016-10-19 18:50] LABS: Albumin 4.5 g/dL (3.2-5.2); BUN/Creatinine Ratio 10.3 (8-20); C Reactive Protein 2.32 mg/L (< 5.00); Calcium 9.4 mg/dL (8.6-10.3); EGFR African American 83.5 (>60); Globulin 3.6 g/dL (2-4); Potassium 3.8 mmol/L (3.5-5.0); Total Bilirubin 1.2 mg/dL (0.2-1.0); Total Protein 8.1 g/dL (6.4-8.9)
[2016-10-19] MEDS ORDERED: Iohexol 300* (CONTRAST) 10 ML SDV IV ONE (20:21)
--- NOTE | 2016-10-19 21:03 | RAD ---
INDICATION: Vomiting. No flatus. Evaluate for small bowel obstruction COMPARISON: July 02, 2016 TECHNIQUE: Axial source images were obtained from the hemidiaphragms to the symphysis pubis following administration of oral and intravenous contrast. 133 mL Omnipaque 300 was utilized. Coronal and sagittal reconstructed images were acquired. Lung bases: The lung bases are clear. Liver: The liver is normal in size. There is mild hepatic steatosis There are no masses. There is no ductal dilatation. Gallbladder: Cholelithiasis with partially contracted gallbladder, unchanged. Spleen: The spleen is normal in size. There are no masses. Pancreas: There is no focal pancreatic mass or ductal dilatation. Adrenal glands: There is no evidence of adrenal mass. Kidneys: The kidneys are normal in size and position. There are prompt nephrograms and there is prompt excretion bilaterally. There are no renal parenchymal masses. There is no evidence of nephrolithiasis. Adenopathy: There is no evidence of adenopathy by size criteria. Fluid collections: There are no free or localized fluid collections. Vessels:There are no significant atherosclerotic changes involving the aorta. There is no focal aneurysm. The iliac vessels are normal in caliber. The IVC appears normal. GI tract: There are no acute CT bowel findings. There is no obstruction. The stomach and small bowel appear unchanged. There is right inguinal hernia containing small bowel. There are no findings of strangulation. The lower GI tract is remarkable for post surgical changes involving the cecum and sigmoid colon. Pelvic organs: The prostate and seminal vesicles appear normal Bladder: There are no bladder masses. Abdominal and pelvic soft tissues: The extraperitoneal abdominal and pelvic soft tissues appear normal.. Osseous structures: There are no acute osseous findings. Other: None IMPRESSION: 1. Right inguinal hernia containing small bowel. No obstruction or strangulation. The appearance is unchanged 2. Cholelithiasis, unchanged 3. Posterior changes of the colon, unchanged. 4. Hepatic steatosis
[2016-10-19 21:55] VITALS: BP 134/91
--- NOTE | 2016-10-22 14:35 | ED ---
Payton Moffett Rebecca, scribed for Rafy Mcgee MD on 10/19/16 at 1800 . Abdominal Pain/Male - HPI Summary HPI Summary: Pt is a 56 y/o M who presents to ED c/o abd pain. Sx began 1 week ago. Pain is generalized abdominal pain, particularly on the right side with radiation into the chest and is currently severe, ranked 8/10. Sx aggravated and alleviated by nothing. Additionally c/o abdominal bloating, vomiting, diarrhea, inability to pass gas and decreased PO intake. Reports he is vomiting bile with the last time being about 2 hours [employer]. PMHx IBS, ulcerative colitis and diverticulitis. He was hospitalized 9x for diverticulitis. GI is Dr. Hoff. - History of Current Complaint Chief Complaint: EDAbdPain Stated Complaint: ABD PAIN Time Seen by Provider: 10/19/16 17:51 Hx Obtained From: Patient Onset/Duration: Lasting Weeks - 1 week, Still Present Severity Currently: Severe Pain Intensity: 8 Pain Scale Used: 0-10 Numeric Location: Diffuse, Other - Particularly on the right side Radiates: Yes Radiates to: Chest Aggravating Factor(s): Nothing Alleviating Factor(s): Nothing Associated Signs And Symptoms: Positive: Nausea, Vomiting, Diarrhea, Other - Abdominal bloating, decreased PO intake, inability to pass gas - Allergies/Home Medications Allergies/Adverse Reactions: Allergies Allergy/AdvReac Type Severity Reaction Status Date / Time Metoclopramide [From Reglan] Allergy Intermediate Pain Verified 10/19/16 17:49 Morphine Allergy muscle Verified 10/19/16 17:49 tightening PMH/Surg Hx/FS Hx/Imm Hx Endocrine/Hematology History: Reports: Hx Thyroid Disease - hypothyroid, Hx Anemia Denies: Hx Anticoagulant Therapy, Hx Blood Disorders, Hx Blood Transfusions, Hx Bone Marrow Disease, Hx Diabetes, Hx Systemic Lupus Erythematosus, Hx Sickle Cell Disease, Hx Unexplained Bleeding Cardiovascular History: Reports: Hx Hypotension, Other Cardiovascular Problems/ Disorders - PT STATES HE HAS HAD A HEART MURMUR FOR A LONG TIME Denies: Hx Aneurysm, Hx Angina, Hx Angioplasty, Hx Auto Implanted Cardiovert Defib, Hx Cardiac Arrest, Hx Cardiomegaly, Hx Congenital Heart Disease, Hx Congestive Heart Failure, Hx Coronary Artery Disease, Hx Deep Vein Thrombosis, Hx Embolism, Hx Hypercholesterolemia, Hx Hypertension, Hx Pacemaker/ICD, Hx Peripheral Vascular Disease, Hx Rheumatic Fever, Hx Syncope, Hx Valvular Heart Disease Respiratory History: Reports: Hx Pneumonia Denies: Hx Asthma, Hx Chronic Bronchitis, Hx Chronic Obstructive Pulmonary Disease (COPD), Hx Cystic Fibrosis, Hx Lung Cancer, Hx Pleural Effusion, Hx Pulmonary Edema, Hx Pulmonary Embolism, Hx Seasonal Allergies, Hx Sleep Apnea, Other Respiratory Problems/Disorders GI History: Reports: Hx Crohn's Disease, Hx Diverticulosis, Hx Gall Bladder Disease, Hx Hiatal Hernia, Hx Irritable Bowel, Hx Obstructive Bowel, Hx Ileostomy - with reversal, Other GI Disorders - acute pancreatitis ('07). SBO. adhesions. Multiple abd surgeries. Denies: Hx Cirrhosis, Hx Gastroesophageal Reflux Disease, Hx Jaundice, Hx Ulcer History: Denies: Hx Acute Renal Failure, Hx Benign Prostatic Hyperplasia, Hx Chronic Renal Failure, Hx Dialysis, Hx Kidney Infection, Hx Kidney Stones, Hx Renal Disease, Other Problems/Disorders Musculoskeletal History: Reports: Hx Arthritis - RIGHT KNEE, Hx Orthopedic Injury, Other Musculoskeletal History - Tenosynovitis, joint pain Denies: Hx Rheumatoid Arthritis, Hx Bursitis, Hx Tendonitis Sensory History: Reports: Hx Contacts or Glasses Denies: Hx Cataracts, Hx Eye Injury, Hx Eye Prosthesis, Hx Glaucoma, Hx Macular Degeneration, Hx Hearing Aid Opthamlomology History: Reports: Hx Contacts or Glasses Denies: Hx Cataracts, Hx Eye Injury, Hx Eye Prosthesis, Hx Glaucoma, Hx Macular Degeneration Neurological History: Reports: Hx Headaches, Hx Migraine - LAST ONE OVER A YEAR AGO, Other Neuro Impairments/Disorders - EXTREME PTSD- SINCE 2006 Denies: Hx Dementia, Hx Developmental Delay, Hx Nerve Disease, Hx Seizures, Hx Spinal Cord Injury, Hx Transient Ischemic Attacks (TIA) Psychiatric History: Reports: Hx Anxiety - NOT TREATED, Hx Depression - NOT TREATED, Hx Post Traumatic Stress Disorder, Other Psychiatric Issues/Disorders - has had panic attacks Denies: Hx Panic Disorder, Hx Substance Abuse - Cancer History Hx Chemotherapy: No Hx Radiation Therapy: No Hx Palliative Cancer Treatment: No - Surgical History Surgery Procedure, Year, and Place: Colostomy reversal & ileostomy 08/14/13. Ileostomy reversal 10/16/13. Small Bowel resection & APPENDECTOMY -2006,. broken femur and patella- RIGHT-1979. 04/2013- BOWEL RESECTION- COLOSTOMY-. 08/14 ATTEMPTED COLOSTOMY REVERSAL- ILEOSTOMY. TONSILLECTOMY-1976 Hx Anesthesia Reactions: No - Immunization History Date of Tetanus Vaccine: 2007 Date of Influenza Vaccine: 2009 Infectious Disease History: No Infectious Disease History: Reports: Hx Clostridium Difficile - 3 times, Hx of Known/Suspected MRSA - 2006 in [place], nasal swab Denies: Hx Hepatitis, Hx Human Immunodeficiency Virus (HIV), Hx Shingles, Hx Tuberculosis, Hx Known/Suspected VRE, Hx Known/Suspected VRSA, History Other Infectious Disease, Traveled Outside the in Last 30 Days - Family History Known Family History: Positive: Diabetes - Social History Alcohol Use: None Hx Substance Use: No Substance Use Type: Reports: None Hx Tobacco Use: No Smoking Status (MU): Never Smoked Tobacco Review of Systems Negative: Fever, Chills Negative: Erythema Negative: Sore Throat Negative: Chest Pain Negative: Shortness Of Breath, Cough Positive: Abdominal Pain, Vomiting, Diarrhea, Other - Decreased PO intake, inability to pass gas, abdominal bloating Negative: dysuria, hematuria Negative: Myalgia, Edema Negative: Rash Neurological: Other - Negative dizziness All Other Systems Reviewed And Are Negative: Yes Physical Exam - Summary Physical Exam Summary: Constitutional: Well-developed, Well-nourished, Alert. (-) Distressed Skin: Warm, Dry HENT: Normocephalic; Atraumatic Eyes: Conjunctiva normal Neck: Musculoskeletal ROM normal neck. (-) JVD, (-) Stridor, (-) Tracheal deviation Cardio: Rhythm regular, rate normal, Heart sounds normal; Intact distal pulses; The pedal pulses are 2+ and symmetric. Radial pulses are 2+ and symmetric. (-) Murmur Pulmonary/Chest wall: Effort normal. (-) Respiratory distress, (-) Wheezes, (-) Rales Abd: Soft, (-) Tenderness, Positive distension, (-) Guarding, (-) Rebound, Multiple surgical scars Musculoskeletal: (-) Edema Lymph: (-) Cervical adenopathy Neuro: Alert, Oriented x3 Psych: Mood and affect Normal Triage Information Reviewed: Yes Vital Signs On Initial Exam: Initial Vitals Temp Pulse Resp BP Pulse Ox 97.6 F 95 17 140/80 100 10/19/16 14:57 10/19/16 14:57 10/19/16 14:57 10/19/16 14:57 10/19/16 14:57 Vital Signs Reviewed: Yes - Slime Coma Scale Coma Scale Total: 15 Diagnostics - Vital Signs Vital Signs Temp Pulse Resp BP Pulse Ox 10/19/16 17:50 84 129/87 100 10/19/16 16:50 98.2 F 81 17 151/100 99 10/19/16 14:57 97.6 F 95 17 140/80 100 - Laboratory Result Diagrams: 10/19/16 18:20 10/19/16 18:20 Lab Statement: Any lab studies that have been ordered have been reviewed, and results considered in the medical decision making process. Abdominal Pain Fem Course/Dx - Course Assessment/Plan: Pt is a 56 y/o M who presents to ED c/o diffuse abd pain, particularly on the R side, with radaiton to the chest for 1 week. Pain currently severe, ranked 8/10. Additionally c/o abdominal bloating, vomiting, diarrhea, inability to pass gas and decreased PO intake. Reports he is vomiting bile with the last time being about 2 hours [employer]. PMHx IBS, ulcerative colitis and diverticulitis. He was hospitalized 9x for diverticulitis. GI is Dr. Hoff. In the ED course, pt was administered Zofran, Dilaudid and Ns IV. He will be signed out to Dr. Martines with Dx of abdominal pain and vomiting, pending dispo, awaiting CT Abd/Pel. - Diagnoses Provider Diagnoses: Abdominal pain, Vomiting Discharge - Discharge Plan Condition: Stable Disposition: OTHER Discharge Disposition Comment: Pt will be signed out to Dr. Martines, pending dispo, awaiting CT Abd/Pel Referrals: Abdirizak Singh MD [Primary Care Provider] - The documentation as recorded by the Payton nix Rebecca accurately reflects the service I personally performed and the decisions made by , Rafy Mcgee MD.
== END 2016-10-19 21:57 ==
LOC: ED 14:53
DX: R10.9 Unspecified abdominal pain (principal); R11.2 Nausea with vomiting, unspecified; R19.7 Diarrhea, unspecified; R14.0 Abdominal distension (gaseous)
CPT/HCPCS: 36415; 74177; 80053; 83605; 83690; 85025; 86140; 96374; 96375; 99284; J1170; J2405; Q9967

== ENCOUNTER 2016-10-21 17:38 | Emergency (ER) | payer MEDICARE ==
[2016-10-21] MEDS ORDERED: HYDROmorphone* 1 MG/ML 1 ML SYR IV ONE (18:38)
[2016-10-21] MEDS ORDERED: Aspirin Low Dose CHEW TAB* 81 MG PO ONE (18:38)
[2016-10-21] MEDS ORDERED: Ondansetron INJ* 2 MG/ML VIAL IV ONE (18:38)
[2016-10-21] MEDS ORDERED: NS 0.9% 1000 ML* 1,000 ML IV ONE (18:38)
[2016-10-21 18:43] VITALS: BP 125/76
[2016-10-21 18:47] LABS: Hematocrit 49 % (42-52); Hemoglobin 16.3 g/dl (14.0-18.0); Mean Corpuscular HGB Conc 34 g/dl (31-36); Mean Corpuscular Hemoglobin 31 pg (27-31); Mean Corpuscular Volume 92 fL (80-94); Mean Platelet Volume 9 um3 (7.4-10.4); Red Blood Count 5.26 10^6/ul (4.0-5.4); Red Cell Distribution Width 15 % (10.5-15)
[2016-10-21 19:03] LABS: Albumin 4.2 g/dL (3.2-5.2); Calcium 9.2 mg/dL (8.6-10.3); EGFR African American 85.2 (>60); EGFR Non-African American 66.3 (>60); Globulin 3.2 g/dL (2-4); Magnesium 2.2 mg/dL (1.9-2.7); Potassium 3.8 mmol/L (3.5-5.0); Total Bilirubin 1.1 mg/dL (0.2-1.0); Total Protein 7.4 g/dL (6.4-8.9)
--- NOTE | 2016-10-21 19:11 | RAD ---
INDICATION: Chest pain. Cough. COMPARISON: July 02, 2016 TECHNIQUE: An AP portable view obtained at 1840 hours is submitted. FINDINGS: Bones/Soft Tissues: There are no acute bony findings. Cardiomediastinal: The cardiomediastinal silhouette is normal. Lungs: There are no infiltrates. Pleura: There are no pleural effusions. Other: None IMPRESSION: NO ACTIVE DISEASE.
[2016-10-21] MEDS ORDERED: Iohexol 350* (CONTRAST) 500 ML MDV IV ONE (19:59)
[2016-10-21] MEDS ORDERED: HYDROmorphone* 1 MG/ML 1 ML SYR IV SLOW PU ONE (20:30)
--- NOTE | 2016-10-21 20:32 | RAD ---
INDICATION: Cholelithiasis COMPARISON: CT October 19, 2016 TECHNIQUE: Longitudinal and transverse scans of the right upper quadrant were obtained. Doppler interrogation of the hepatic and portal venous system was performed. FINDINGS: Liver: The liver is normal in size and echogenicity. There are no focal masses. The liver measures 16.3 cm in cephalocaudal dimension. Vessels: There is normal hepatic and portal venous flow. Bile ducts: There is no evidence of intrahepatic or extrahepatic ductal dilatation. The common duct measures 0.3 cm. Gallbladder: There are multiple calcified gallstones with a partially contracted gallbladder. There is no thickening gallbladder wall or pericholecystic fluid. Pancreas: The visualized pancreas appears normal Right kidney: The right kidney is normal in size and echogenicity. There are no masses. There may be a 4 mm lower pole right renal calculus. There is no evidence of hydronephrosis. The right kidney measures 9.9 x 4.4 x 5.1 cm. IVC and aorta: The aorta and superior vena cava appear normal. Fluid: There is no ascites. Other: None. IMPRESSION: CHOLELITHIASIS. . POSSIBLE NONOBSTRUCTIVE LOWER POLE RIGHT RENAL CALCULUS.
--- NOTE | 2016-10-21 20:52 | RAD ---
INDICATION: Chest, abdominal, and pelvic pain. Evaluate for pulmonary embolus. COMPARISON: ] Quadrant ultrasound same date; CT abdomen pelvis October 19, 2014. TECHNIQUE: Axial source images were obtained from the thoracic inlet to the symphysis pubis following administration of oral and intravenous contrast. 100 mL Omnipaque 350 was utilized. Coronal and sagittal reconstructed images were acquired. CHEST FINDINGS: Neck/thyroid: The visualized neck to include the thyroid appear normal. Chest wall: There are no acute abnormalities of the bony thorax or chest wall. There is no supraclavicular, infraclavicular, or axillary lymphadenopathy. Lungs : There are no pulmonary parenchymal masses or infiltrates. The pulmonary interstitium appears normal. There are no endobronchial lesions. Cardiomediastinal structures: The heart is normal in size. There is no pericardial effusion. There is no evidence of aortic aneurysm or dissection. The pulmonary vessels appear normal. There is no CT evidence of acute pulmonary embolic disease. There is no mediastinal or hilar adenopathy. The esophagus appears normal. Pleura : There are no pleural-based masses or effusions. ABDOMINAL/PELVIC FINDINGS: Liver: There is mild hepatic steatosis. There are no masses. There is no ductal dilatation. Gallbladder: There are multiple gallstones and a partially contracted gallbladder, unchanged.. Spleen: The spleen is normal in size. There are no masses. Pancreas: There is no evidence of pancreatic mass or ductal dilatation. Adrenal glands: There is no evidence of adrenal mass. Kidneys: The kidneys are normal in size and position. There are prompt nephrograms and there is prompt excretion bilaterally. There are no renal parenchymal masses. Ultrasonography has suggested a lower pole right renal calculus but this is difficult to confirm as this is a contrast-enhanced study. Adenopathy: There is no evidence of adenopathy by size criteria. Fluid collections: There are no free or localized fluid collections. Vessels:The aorta and IVC appear normal GI tract: There are no acute CT bowel findings. There is no obstruction. The stomach and small bowel appear normal. The lower GI tract is unchanged with postsurgical changes involving the cecum and sigmoid colon. Pelvic organs: The prostate and seminal vesicles appear normal Bladder: There are no bladder masses. Abdominal and pelvic soft tissues: There are bilateral inguinal hernias. There is a segment of bowel in the right inguinal hernia which is not associated with obstruction or strangulation. Osseous structures: There are no acute osseous findings. IMPRESSION: 1. No CT evidence of acute ulnar embolic disease. Lungs clear. 2. Mild hepatic steatosis 3. Cholelithiasis, unchanged. 4. Postsurgical changes of the colon, unchanged. 5. Right inguinal hernia containing small bowel. No obstruction stimulation. No interval change.
[2016-10-21] MEDS ORDERED: oxyCODONE/Acetamin 5/325 MG* TAB PO ONE (21:06)
--- NOTE | 2016-10-21 21:11 | ED ---
Brandon Moffett Alfonso, scribed for Angelito Clements MD on 10/21/16 at 1930 . Progress - Progress Note Progress Note: Patient signed out by Dr. Stearns at shift change, pending disposition, awaiting CXR, CT A/P, and lab results. HPI re-evaluation at 1919: This patient is a 56 year old M presenting to [facility] with a chief complaint of constant pressured CP since 0400 today. The CP radiates to his back and right shoulder. Symptoms aggravated by exertion and alleviated by nothing. Pt reports fever, diaphoresis, abdominal pain, productive cough, dyspnea, SOB (cannot get a deep breath), vomiting (yesterday), and loss of appetite. Denies ETOH use. Denies recent travels. Denies recent sick contacts. PMHx and PSHx of SBO, multiple GI surgeries performed by Dr. Tamayo, ruptured appendix, gangrenous bowel, DVT in lungs. Pt still has his gallbladder. Physical Exam: The patient is well-nourished in no acute distress and in no acute pain. The skin is warm and dry and skin color reflects adequate perfusion. HEENT: The head is normocephalic and atraumatic. The pupils are equal and reactive. The conjunctivae are clear and without drainage. Nares are patent and without drainage. Mouth reveals moist mucous membranes and the throat is without erythema and exudate. The external ears are intact. The ear canals are patent and without drainage. The tympanic membranes are intact. Neck is supple with full range of motion and non-tender. There are no carotid bruits. There is no neck vein distension. Respiratory: Chest is non-tender. Lungs are clear to auscultation and breath sounds are symmetrical and equal. Cardiovascular: Heart is regular rate and rhythm. There is no murmur or rub auscultated. There is no peripheral edema and pulses are symmetrical and equal. Abdomen: The abdomen is soft. RUQ tenderness. There are normal bowel sounds heard in all four quadrants and there is no organomegaly palpated. Multiple scars on abdomen. Musculoskeletal: There is no back pain noted. Extremities are non-tender with full range of motion. There is good capillary refill. There is no peripheral edema or calf tenderness elicited. Neurological: Patient is alert and oriented to person, place and time. The patient has symmetrical motor strength in all four extremities. Cranial nerves are grossly intact. Deep tendon reflexes are symmetrical and equal in all four extremities. Psychiatric: The patient has an appropriate affect and does not exhibit any anxiety or depression. Patients condition is stable and he will be discharged home with a diagnosis of gallstones and follow up from Dr. Singh (PCP), Andry Gunn (PCP), and Dr. Tamayo (Surgeon). Pt is agreeable with this plan. - Results/Orders Results/Orders: CXR reveals, per radiologist, no active disease. CTA chest/abdomen/pelvis reveals, per radiologist, CTA chest/abdomen/pelvis reveals 1. No CT evidence of acute ulnar embolic disease. Lungs clear. 2. Mild hepatic steatosis 3. Cholelithiasis, unchanged. 4. Postsurgical changes of the colon, unchanged. 5. Right inguinal hernia containing small bowel. No obstruction stimulation. No interval change. An US gallbladder reveals, per radiologist, CHOLELITHIASIS. POSSIBLE NONOBSTRUCTIVE LOWER POLE RIGHT RENAL CALCULUS. Re-Evaluation - Re-Evaluation First Eval Re-Evaluation Time: 19:19 Comment: HPI reeval in chart. Course/Dx - Course Course Of Treatment: 56 year old M presenting to [facility] with a chief complaint of constant pressured CP since 0400 today. The CP radiates to his back and right shoulder. Symptoms aggravated by exertion and alleviated by nothing. Pt reports fever, diaphoresis, abdominal pain, productive cough, dyspnea, SOB ( cannot get a deep breath), vomiting (yesterday), and loss of appetite. Denies ETOH use. Denies recent travels. Denies recent sick contacts. PMHx and PSHx of SBO, multiple GI surgeries performed by Dr. Tamayo, ruptured appendix, gangrenous bowel, DVT in lungs. Pt still has his gallbladder. EKG is NSR at 83bpm with nml AVIVCD, nml QTC, left axis -89, no acute change, no significant change from prev EKG on 01/17/16. CXR reveals no active disease. CTA chest/ abdomen/pelvis reveals 1. No CT evidence of acute ulnar embolic disease. Lungs clear. 2. Mild hepatic steatosis. 3. Cholelithiasis, unchanged. 4. Postsurgical changes of the colon, unchanged. 5. Right inguinal hernia containing small bowel. No obstruction stimulation. No interval change. An US gallbladder reveals CHOLELITHIASIS. POSSIBLE NONOBSTRUCTIVE LOWER POLE RIGHT RENAL CALCULUS. Only one troponin was ordered because the CP has been a constant pressure since 0400 today, more than 6 hours have passed, and the first troponin was 0.00. PE and acute cholecystitis were ruled out. Patient will be discharged with follow up from Dr. Singh (PCP), Andry Gunn (PCP), and Dr. Tamayo (Surgeon). Pt is agreeable with this plan. - Diagnoses Provider Diagnoses: Gallstones The documentation as recorded by the Brandon nix Alfonso accurately reflects the service I personally performed and the decisions made by , Angelito Clements MD.
--- NOTE | 2016-10-21 21:11 | ED ---
Nimo Moffett SooYoung, scribed for Dyana Stearns MD on 10/21/16 at 1807 . HPI Chest Pain - HPI Summary HPI Summary: A 56 y/o M presents to ED with mid-sternal CP onset at approx 8551-5282 that radiates to R-side of chest and RUQ. Rates pain as 8-9 out of 10. Associated sx : paleness, intermittent diaphoresis, n/v, chronic mildly productive cough since May, mild edema on R leg. Denies calf pain. Took Zofran at 2300 yesterday with no relief. He states he hasn't eaten much in past two weeks. Today, pt called his PCP, Dr. Gunn, who recommended he come to ED. Pt was last seen in ED two days ago for abd pain. Denies being on blood thinners. PMHx/PSHx : SBO, multiple GI surgeries performed by Dr. Tamayo, ruptured appendix, gangrenous bowel, PE, sepsis, adrenal insufficiency. Pt still has his gallbladder. He has had a cardiac echo approx 2 years ago. Has never had a stress test to his knowledge. No ETOH, no drug use. - History of Current Complaint Chief Complaint: EDChestPainROMI Hx Obtained From: Patient Onset/Duration: Started Hours Ago - onset at 0400 - 0500, Atraumatic, Still Present Time of Onset: 04:00 Timing: Constant Initial Severity: Moderate Current Severity: Severe Pain Intensity: 8 Pain Scale Used: 0-10 Numeric Chest Pain Location: Mid Sternal Chest Pain Radiates: Yes Chest Pain Radiates To:: Other - RUQ, R-side of chest Character: Cough, Productive, Dyspnea at Rest Aggravating Factor(s): Nothing Alleviating Factor(s): Nothing Associated Signs and Symptoms: Positive: Diaphoresis, Nausea, Productive Cough, Vomiting, Edema - R calf, Other: - pos: pale; neg: calf pain - Risk Factors Pulmonary Embolism Risk Factors: Previous PE - Additional Pertinent History Primary Care Physician: HENRI - Allergy/Home Medications Allergies/Adverse Reactions: Allergies Allergy/AdvReac Type Severity Reaction Status Date / Time Metoclopramide [From Reglan] Allergy Intermediate Pain Verified 10/21/16 17:40 Morphine Allergy muscle Verified 10/21/16 17:40 tightening PMH/Surg Hx/FS Hx/Imm Hx Previously Healthy: No Endocrine/Hematology History: Reports: Hx Thyroid Disease - hypothyroid, Hx Anemia Denies: Hx Anticoagulant Therapy, Hx Blood Disorders, Hx Blood Transfusions, Hx Bone Marrow Disease, Hx Diabetes, Hx Systemic Lupus Erythematosus, Hx Sickle Cell Disease, Hx Unexplained Bleeding Cardiovascular History: Reports: Hx Hypotension, Other Cardiovascular Problems/ Disorders - PT STATES HE HAS HAD A HEART MURMUR FOR A LONG TIME Denies: Hx Aneurysm, Hx Angina, Hx Angioplasty, Hx Auto Implanted Cardiovert Defib, Hx Cardiac Arrest, Hx Cardiomegaly, Hx Congenital Heart Disease, Hx Congestive Heart Failure, Hx Coronary Artery Disease, Hx Deep Vein Thrombosis, Hx Embolism, Hx Hypercholesterolemia, Hx Hypertension, Hx Pacemaker/ICD, Hx Peripheral Vascular Disease, Hx Rheumatic Fever, Hx Syncope, Hx Valvular Heart Disease Respiratory History: Reports: Hx Pneumonia Denies: Hx Asthma, Hx Chronic Bronchitis, Hx Chronic Obstructive Pulmonary Disease (COPD), Hx Cystic Fibrosis, Hx Lung Cancer, Hx Pleural Effusion, Hx Pulmonary Edema, Hx Pulmonary Embolism, Hx Seasonal Allergies, Hx Sleep Apnea, Other Respiratory Problems/Disorders GI History: Reports: Hx Crohn's Disease, Hx Diverticulosis, Hx Gall Bladder Disease, Hx Hiatal Hernia, Hx Obstructive Bowel, Hx Ileostomy - with reversal, Other GI Disorders - acute pancreatitis ('07). SBO. adhesions. Multiple abd surgeries. Denies: Hx Cirrhosis, Hx Gastroesophageal Reflux Disease, Hx Irritable Bowel , Hx Jaundice, Hx Ulcer History: Denies: Hx Acute Renal Failure, Hx Benign Prostatic Hyperplasia, Hx Chronic Renal Failure, Hx Dialysis, Hx Kidney Infection, Hx Kidney Stones, Hx Renal Disease, Other Problems/Disorders Musculoskeletal History: Reports: Hx Arthritis - RIGHT KNEE, Hx Orthopedic Injury, Other Musculoskeletal History - Tenosynovitis, joint pain Denies: Hx Rheumatoid Arthritis, Hx Bursitis, Hx Tendonitis Sensory History: Reports: Hx Contacts or Glasses Denies: Hx Cataracts, Hx Eye Injury, Hx Eye Prosthesis, Hx Glaucoma, Hx Macular Degeneration, Hx Hearing Aid Opthamlomology History: Reports: Hx Contacts or Glasses Denies: Hx Cataracts, Hx Eye Injury, Hx Eye Prosthesis, Hx Glaucoma, Hx Macular Degeneration Neurological History: Reports: Hx Headaches, Hx Migraine, Other Neuro Impairments/Disorders - EXTREME PTSD- SINCE 2006 Denies: Hx Dementia, Hx Developmental Delay, Hx Nerve Disease, Hx Seizures, Hx Spinal Cord Injury, Hx Transient Ischemic Attacks (TIA) Psychiatric History: Reports: Hx Anxiety - NOT TREATED, Hx Depression - NOT TREATED, Hx Post Traumatic Stress Disorder, Other Psychiatric Issues/Disorders - has had panic attacks Denies: Hx Panic Disorder, Hx Substance Abuse - Cancer History Hx Chemotherapy: No Hx Radiation Therapy: No Hx Palliative Cancer Treatment: No - Surgical History Surgery Procedure, Year, and Place: Colostomy reversal & ileostomy 08/14/13. Ileostomy reversal 10/16/13. Small Bowel resection & APPENDECTOMY -2006,. broken femur and patella- RIGHT-1979. 04/2013- BOWEL RESECTION- COLOSTOMY-[facility]. 08/14 ATTEMPTED COLOSTOMY REVERSAL- ILEOSTOMY. TONSILLECTOMY-1976 Hx Anesthesia Reactions: No - Immunization History Date of Tetanus Vaccine: 2007 Date of Influenza Vaccine: 2009 Infectious Disease History: Reports: Hx Clostridium Difficile - 3 times, Hx of Known/Suspected MRSA - 2006 in [place], nasal swab Denies: Hx Hepatitis, Hx Human Immunodeficiency Virus (HIV), Hx Shingles, Hx Tuberculosis, Hx Known/Suspected VRE, Hx Known/Suspected VRSA, History Other Infectious Disease, Traveled Outside the in Last 30 Days - Family History Known Family History: Positive: Diabetes, Other - ETOH abuse, mother - Social History Occupation: Disabled Lives: With Family Alcohol Use: None Hx Substance Use: No Substance Use Type: Reports: None Hx Tobacco Use: No Smoking Status (MU): Never Smoked Tobacco Review of Systems Positive: Skin Diaphoresis, Other - pos: paleness. Negative: Fever Positive: Chest Pain Positive: Shortness Of Breath, Cough Positive: Vomiting, Nausea Positive: Edema - RLE, Other - neg: calf pain Neurological: Negative Psychological: Normal All Other Systems Reviewed And Are Negative: Yes Physical Exam Triage Information Reviewed: Yes Vital Signs On Initial Exam: Initial Vitals Temp Pulse Resp BP Pulse Ox 97.6 F 103 20 155/112 99 10/21/16 17:40 10/21/16 17:40 10/21/16 17:40 10/21/16 17:40 10/21/16 17:40 Vital Signs Reviewed: Yes Appearance: Positive: Well-Nourished, Ill-Appearing, Pain Distress Skin: Positive: Warm, Diaphoretic, Pale Head/Face: Positive: Normal Head/Face Inspection Eyes: Positive: Conjunctiva Clear ENT: Positive: Normal ENT inspection Neck: Positive: Supple Respiratory/Lung Sounds: Positive: Clear to Auscultation, Breath Sounds Present , Other - no respiratory distress; dry cough Cardiovascular: Positive: RRR, Leg Edema Right - 1+, Other - pulses normal, brisk capillary refill. Negative: Murmur Abdomen Description: Positive: Soft, Other: - multiple abd scars, RUQ tenderness. Negative: Nontender, CVA Tenderness (R), CVA Tenderness (L), Distended, Guarding, McBurney's Point Tenderness, Peritoneal Signs, Pulsatile Mass Bowel Sounds: Positive: Present Musculoskeletal: Positive: Strength/ROM Intact, Edema Right - 1+ Neurological: Positive: Sensory/Motor Intact, Alert, Oriented to Person Place, Time, Facial Symmetry, Speech Normal Psychiatric: Positive: Normal Diagnostics - Vital Signs Vital Signs Temp Pulse Resp BP Pulse Ox 10/21/16 17:40 97.6 F 103 20 155/112 99 - Laboratory Result Diagrams: 10/21/16 18:35 10/21/16 18:35 Lab Statement: Any lab studies that have been ordered have been reviewed, and results considered in the medical decision making process. - EKG 1752 Cardiac Rate: NL - 83 bpm EKG Rhythm: Sinus Rhythm EKG Interpretation: nml AVIVCD, nml QTC, left axis -89, no acute change EKG Comparison: No Significant Change - from 01/17/16 Chest Pain Course/Dx - Course Course Of Treatment: Allergies noted. Medications reviewed. Hypertensive BP reading (155/112); patient referred to PCP within 1 day-4 weeks for follow-up. Pt is a 56 y/o M with comorbidities presenting with mid-sternal CP onset at approx 3775-9325 that radiates to R-side of chest and RUQ. Rates pain as 8-9 out of 10. Associated sx: paleness, intermittent diaphoresis, n/v, chronic mildly productive cough since May, mild edema on R leg. Denies calf pain. Took Zofran at 2300 yesterday with no relief. He states he hasn't eaten much in past two weeks. Today, pt called his PCP, Dr. Gunn, who recommended he come to ED. Pt was last seen in ED two days ago for abd pain. Denies being on blood thinners. PMHx/PSHx: SBO, multiple GI surgeries performed by Dr. Tamayo, ruptured appendix, gangrenous bowel, DVT in lungs. Pt still has his gallbladder. He has had an echo approx 2 years ago. No ETOH, no drug use. Pt given aspirin, diluadid, Zofran and fluids in ED. Ddimer, BNP and lactic acid are WNL. EKG is NSR at 83bpm with nml AVIVCD, nml QTC, left axis -89, no acute change, no significant change from prev EKG on 01/17/16. Assessment/Plan: Pt is signed out to Dr. Clements at change of shift with labs and CT pending. - Chest Pain Differential Diagnosis/HQI/PQRI: ACS, Lower Respiratory Infection, Pulmonary Embolism - Diagnoses Provider Diagnoses: Gallstones, Chest pain Discharge - Discharge Plan Condition: Stable Disposition: OTHER Discharge Disposition Comment: Sign out to Dr. Clements pending CT imaging results, lab and trop results. Referrals: Abdirizak Singh MD [Primary Care Provider] - (Follow up within 1 day - 4 weeks for further evaluation of your elevated blood pressure (155/112).) Additional Instructions: Your blood pressure reading today was 155/112, which is HYPERTENSIVE. Follow-up with your primary care provider within 4 weeks for blood pressure readings and further evaluation. Please return to the Emergency Department if you experience new or worsening symptoms. The documentation as recorded by the Nimo nix SooYoung accurately reflects the service I personally performed and the decisions made by , Dyana Stearns MD.
== END 2016-10-21 22:12 | disposition home or self-care (01) ==
LOC: ED 17:38
DX: K80.80 Other cholelithiasis without obstruction (principal); R11.2 Nausea with vomiting, unspecified; R05 Cough
CPT/HCPCS: 36415; 71010; 71275; 74177; 76705; 80053; 82150; 82550; 82553; 83605; 83690; 83735; 83880; 84484; 85025; 85379; 85610; 85730; 93005; 96374; 96375; 99282; A9270-GY; J1170; J2405; Q9967